=== PATIENT | female | born 1975 | race Caucasian/White ===

== ENCOUNTER 2020-08-26 22:21 | Emergency (ER) | payer OTHER ==
[~2020-08-26] VITALS: Ht 160 cm; Wt 65.2 kg
[2020-08-26] MEDS ORDERED: LAMO150T3 PO (22:56)
[2020-08-26] MEDS ORDERED: DULO60CA6 PO (22:56)
[2020-08-26] MEDS ORDERED: AMIT25TA PO (22:56)
[2020-08-26] MEDS ORDERED: TIZA4TAB2 PO (22:56)
--- NOTE | 2020-08-26 23:15 | PHYS DOC ---
General Adult EDM: Chief Complaint: POST-OP PROBLEM HPI: HPI: 45-year-old female presents with lower abdominal pain and concern for vaginal prolapse. Patient had a total hysterectomy and vaginal suspension 1 month ago. She has been doing well at home. She went for a long walk today and was a bit achy afterwards. She then had a difficult bowel movement and felt like something gave way in her vagina. She palpated the area and feels like there is a mechanical change. She called her surgeon who states that she may need to have a revision. He advised to come the emergency room for pain management. Patient is having moderate crampy pain. She does not have pain medication at home anymore. She denies fever or chills. Review of Systems: Review of Systems: Constitutional: Denies fever or chills Eyes: Denies change in visual acuity HENT: Denies nasal congestion or sore throat Respiratory: Denies cough or shortness of breath Cardiovascular: Denies chest pain or edema GI: Lower abdominal pain. Denies nausea, vomiting, bloody stools or diarrhea : Vaginal pain Musculoskeletal: Denies back pain or joint pain Integument: Denies rash Neurologic: Denies headache, focal weakness or sensory changes Endocrine: Denies polyuria or polydipsia Lymphatic: Denies swollen glands Psychiatric: Denies depression or anxiety Current Medications: Current Meds: Current Medications Medications (Trade) Dose Ordered Sig/Deejay Start Time Stop Time Status Last Admin Dose Admin Morphine Sulfate (Morphine 4mg Syringe) 4 mg 1X ONCE 08/26/20 23:15 08/26/20 23:16 UNV Ondansetron HCl (Zofran) 4 mg 1X ONCE 08/26/20 23:15 08/26/20 23:16 UNV Allergies: Allergies: Allergies Coded Allergies Type Severity Reaction Last Updated Verified No Known Drug Allergies 08/26/20 No Physical Exam: PE: Constitutional: Well developed, well nourished, no acute distress, non-toxic appearance. [] HENT: Normocephalic, atraumatic, bilateral external ears normal, oropharynx moist, no oral exudates, nose normal. [] Eyes: PERRLA, EOMI, conjunctiva normal, no discharge. [] Neck: Normal range of motion, no tenderness, supple, no stridor. [] Cardiovascular: Heart rate regular rhythm, no murmur [] Lungs & Thorax: Bilateral breath sounds clear to auscultation [] Abdomen: Bowel sounds normal, soft, suprapubic tenderness with involuntary guarding, no masses, no pulsatile masses. [] Skin: Warm, dry, no erythema, no rash. [] Back: No tenderness, no CVA tenderness. [] Extremities: No tenderness, no cyanosis, no clubbing, ROM intact, no edema. [] Neurologic: Alert and oriented X 3, normal motor function, normal sensory function, no focal deficits noted. [] Psychologic: Affect normal, judgement normal, mood normal. : Normal external genitalia. Digital exam revealed prominence and increased pain of the left side of the vaginal wall. None symmetrical feeling. [] EKG: EKG: [] Radiology/Procedures: Radiology/Procedures: [] Heart Score: Risk Factors: Risk Factors: DM, Current or recent (<one month) smoker, HTN, HLP, family history of CAD, obesity. Risk Scores: Score 0 - 3: 2.5% MACE over next 6 weeks - Discharge Home Score 4 - 6: 20.3% MACE over next 6 weeks - Admit for Clinical Observation Score 7 - 10: 72.7% MACE over next 6 weeks - Early Invasive Strategies Course & Med Decision Making: Course & Med Decision Making Pertinent Labs and Imaging studies reviewed. (See chart for details) I gave the patient 4 mg of Zofran and 4 mg of morphine IV. This decreased her pain to 4 out of 10. Her exam is consistent with a likely failed suspension of the vaginal wall. I will give her a a Percocet 7.5 in the ED and prescription for Percocet 5/325 for home. She is scheduled to follow-up with her surgeon on Saturday. She is stable for discharge at this time [] Kay Disclaimer: Kay Disclaimer: This electronic medical record was generated, in whole or in part, using a voice recognition dictation system. Departure Departure: Impression: Primary Impression: Vaginal wall prolapse Referrals: NON,STAFF (PCP) Scripts Oxycodone Hcl/Acetaminophen (PERCOCET 5-325 MG TABLET ) 1 Each Tablet 1 TAB PO Q6HRS PRN for PAIN for 5 Days, #15 TAB 0 Refills Prov: KADEEM MILLS DO 08/27/20 KADEEM MILLS DO Aug 26, 2020 23:15
[2020-08-26] MEDS ORDERED: ONDANSETRON PF 4 MG/2 ML VIAL. IVP ONE (23:30)
[2020-08-26] MEDS ORDERED: MORPHINE SULFATE 4 MG/ML DISP.SYRIN. IV ONE (23:30)
[2020-08-26 23:55] VITALS: BP 132/80
[2020-08-27] MEDS ORDERED: oxyCODONE/APAP 7.5/325 1 TAB TABLET PO ONE
[2020-08-27] MEDS ORDERED: oxyCODONE/APAP 7.5/325 1 TAB TABLET ONE (00:02)
[2020-08-27] MEDS ORDERED: OXYC1TAB15 PO (00:02)
[2020-08-27 00:40] LABS: BASO % 1 % (0-3); EOS # 0.3 x10^3/uL (0.0-0.7); EOS % 5 % (0-3); HEMATOCRIT 34.8 % (36.0-47.0); HEMOGLOBIN 11.5 g/dL (12.0-15.5); LYMPH # 2.2 x10^3/uL (1.0-4.8); LYMPH % 38 % (24-48); MEAN CORPUSCULAR HEMOGLOBIN 31 pg (25-35); MEAN CORPUSCULAR HGB CONC 33 g/dL (31-37); MEAN CORPUSCULAR VOLUME 93 fL (79-100); MONO # 0.4 x10^3/uL (0.0-1.1); MONO % 7 % (0-9); NEUT # 2.9 x10^3uL (1.8-7.7); NEUT % 50 % (31-73); PLATELET COUNT 212 x10^3/uL (140-400); RED BLOOD COUNT 3.74 x10^6/uL (3.50-5.40); RED CELL DISTRIBUTION WIDTH 12.8 % (11.5-14.5); WHITE BLOOD COUNT 5.8 x10^3/uL (4.0-11.0)
[2020-08-27 00:42] LABS: CALCIUM 8.8 mg/dL (8.5-10.1); GFR 59.7; POTASSIUM 3.6 mmol/L (3.5-5.1)
[2020-08-27 00:47] LABS: ALBUMIN 3.7 g/dL (3.4-5.0); ALBUMIN/GLOBULIN RATIO 1.2 (1.0-1.7); TOTAL BILIRUBIN 0.2 mg/dL (0.2-1.0); TOTAL PROTEIN 6.8 g/dL (6.4-8.2)
== END 2020-08-27 00:07 | disposition home or self-care (01) ==
LOC: ER 22:21
DX: N81.10 Cystocele, unspecified (principal); Z90.710 Acquired absence of both cervix and uterus
CPT/HCPCS: 36415; 80053; 85025; 96374; 96375; 99284; J2270; J2405; 81001